=== PATIENT | female | born 1940 | race Hispanic/Latino ===

== ENCOUNTER 2017-02-03 09:23 | Emergency (ER) | payer MEDICARE ==
[2017-02-03 09:31] VITALS: BMI 27.3
[2017-02-03 09:33] VITALS: BP 134/52; PULSE 84; TEMP 96.8
[2017-02-03 10:14] VITALS: O2SAT 98
--- NOTE | 2017-02-03 11:38 | ED PDOC ---
HPI: General Adult Time Seen by Provider: 02/03/17 10:37 Chief Complaint (Nursing): Upper Extremity Problem/Injury History Per: Patient Additional Complaint(s): Pt. states yesterday she tripped and fell and injured the R hand/wrist. Also reports falling on both knees but has no pain to them and has been ambulating without difficulty. Denies head injury, numbness, tingling. Past Medical History Reviewed: Historical Data, Nursing Documentation, Vital Signs Vital Signs: Last Vital Signs Temp 96.8 F L 02/03/17 09:31 Pulse 84 02/03/17 09:31 Resp 20 02/03/17 09:31 BP 134/52 L 02/03/17 09:31 Pulse Ox 98 02/03/17 13:30 - Medical History PMH: Arthritis, HTN, Hypercholesterolemia, Kidney Stones, Osteoporosis, Pancreatitis, Pneumonia, Chronic Kidney Disease Denies: Alzheimer's Disease, Anemia, Anxiety, Asthma, Atrial Fibrillation, Bipolar Disorder, Bronchitis, CAD, Cardia Arrhythmia, CHF, COPD, Crohn's Disease , Dementia, Depression, Diverticulitis, Emphysema, Fractures, Gastritis, Gall Bladder Disease, HIV, Hyperthyroidism, Migraine, Mitral Valve Prolapse, Multiple Sclerosis, Paranoia, Parkinson's Disease, Peripheral Edema, Post Traumatic Stress Disorder, Pulmonary Embolism, Rheumatoid Arthritis, Schizophrenia, Seizures, Sickle Cell Disease, Sexually Transmitted Disease, Sleep Apnea, TIA - Surgical History Surgical History: Tonsillectomy Denies: Appendectomy, CABG, Carotid Endarterectomy, Cholecystectomy, Coronary Stent, Endoscopy, Pacemaker - Family History Family History: States: No Known Family Hx - Home Medications Home Medications: Ambulatory Orders Medication Instructions Recorded Enalapril Maleate [Vasotec] 5 mg PO DAILY tab 04/05/16 Simvastatin [Zocor] 20 mg PO DAILY 12/18/16 Tramadol HCl [Ultram] 50 mg PO BID PRN #10 tablet 02/03/17 - Allergies Allergies/Adverse Reactions: Allergies Allergy/AdvReac Type Severity Reaction Status Date / Time coconut oil Allergy Mild RASH Verified 02/03/17 10:11 Review of Systems ROS Statement: Except As Marked, All Systems Reviewed And Found Negative Musculoskeletal: Positive for: Hand Pain Physical Exam - Physical Exam Appears: Positive for: Well, Non-toxic, No Acute Distress Head Exam: Positive for: ATRAUMATIC, NORMAL INSPECTION, NORMOCEPHALIC Pulses-Dorsalis Pedis (L): 2+ Pulses-Dorsalis Pedis (R): 2+ Pulses-Radial (L): 2+ Pulses-Radial (R): 2+ Extremity: Positive for: Other (RUE: L dorsal hand and wrist with mild tenderness and swelling with ecchymosis but no deformity; BOTH KNEES: with minimal ecchymosis but no tenderness or deformity, L knee with superficial abrasion but no surrounding erythema) Neurologic/Psych: Positive for: Alert, Oriented - ECG O2 Sat by Pulse Oximetry: 98 - Radiology X-Ray: Interpreted by Me (R hand/wrist) - Progress ED Course And Treament: Adacel prophylaxis administered. R hand/wrist x-rays: Minimally displaced intra-articular fracture of the base of the 5th metacarpal. Pt. informed that she will need ortho consult. Pt. requests Dr. Awad as recommended to her by her friends. Call placed to Dr. Awad. [phone] Awad, who is in surgery at this time. Hand immobilized in orthoglass ulnar gutter splint applied by PA. [phone] Pt. requesting to be dc'd despite ortho consult not being done yet. Pt. states she herself will contact Dr. Awad. Informed that ortho consult is necessary for proper healing of fracture. Pt. searched on [place] [employer] and show no narcotic Rx's in the past 12 months. Disposition - Clinical Impression Clinical Impression: Hand fracture - Patient ED Disposition Is Patient to be Admitted: No - Disposition Referrals: Marily Awad MD [Staff Provider] - Disposition: Routine/Home Disposition Time: 11:43 Condition: STABLE Prescriptions: Tramadol HCl [Ultram] 50 mg PO BID PRN #10 tablet PRN Reason: Other Instructions: Hand Fracture (ED), Splint Care (ED) Forms: [employer] ([place]an) Print Language: IRISH
--- NOTE | 2017-02-03 11:45 | RAD ---
PROCEDURE: Right Hand Radiographs. HISTORY: trauma COMPARISON: None. FINDINGS: BONES: Minimally displaced intraarticular fracture of the base of the 5th metacarpal. JOINTS: Degenerative changes. SOFT TISSUES: Swelling adjacent to 5th metacarpal. OTHER FINDINGS: None. IMPRESSION: Minimally displaced intra-articular fracture of the base of the 5th metacarpal.
--- NOTE | 2017-02-03 11:45 | RAD ---
PROCEDURE: Right Wrist Radiographs. HISTORY: trauma COMPARISON: None. FINDINGS: BONES: Minimally-displaced intra-articular fracture of the base of the 5th metacarpal. JOINTS: Degenerative changes. SOFT TISSUES: Soft tissue swelling adjacent to 5th metacarpal. OTHER FINDINGS: None. IMPRESSION: Minimally displaced intra-articular fracture of the base of the 5th metacarpal.
[2017-02-03 13:53] VITALS: RESP 16
== END 2017-02-03 13:46 | disposition home or self-care (01) ==
LOC: H.ER 09:23
DX: S62.91XA Unspecified fracture of right hand, initial encounter for closed fracture (principal); W19.XXXA Unspecified fall, initial encounter; I12.9 Hypertensive chronic kidney disease with stage 1 through stage 4 chronic kidney disease, or unspecified chronic kidney disease; M81.0 Age-related osteoporosis without current pathological fracture; N18.9 Chronic kidney disease, unspecified; Z87.442 Personal history of urinary calculi; E78.00 Pure hypercholesterolemia, unspecified

== ENCOUNTER 2017-02-09 09:48 | Emergency (ER) | payer MEDICARE ==
[2017-02-09 09:49] VITALS: BMI 27.3
[2017-02-09 09:53] VITALS: TEMP 97.8
[2017-02-09] MEDS ORDERED: Sodium Chloride 0.9% 1,000 ML IV STA (10:37)
--- NOTE | 2017-02-09 11:05 | ED PDOC ---
Syncope/Near Syncope/Dizziness Time Seen by Provider: 02/09/17 10:02 Chief Complaint (Nursing): Dizziness/Lightheaded Chief Complaint (Provider): Dizziness/Lightheaded History Per: Patient History/Exam Limitations: no limitations Onset/Duration Of Symptoms: Days (x1 this am) Associated Symptoms Preceding Syncopal Episode: Lightheadedness, Other (slight headache) Fall Associated With With Symptoms: No Additional Complaint(s): Kamila Garcia is a 76 year old female, with a past medical history of hypertension, who was brought to the emergency department by EMS for acute lightheadedness and mild headache onset since this morning. Patient reports that after she got to her friend's apartment, she had a coffee and some chocolate cake, but then vomited the contents. Patient feels dehydrated and admits to not eating well. She denies any fever, chills, thirst, neck pain, chest pain, shortness of breath, abdominal pain, dysuria, diarrhea or nausea. No further medical complaints. PMD: Bryan Vieyra Past Medical History Reviewed: Historical Data, Nursing Documentation, Vital Signs Vital Signs: Last Vital Signs Temp 97.8 F 02/09/17 10:12 Pulse 78 02/09/17 10:12 Resp 20 02/09/17 10:12 BP 151/70 H 02/09/17 10:12 Pulse Ox 100 02/09/17 10:12 - Medical History PMH: Arthritis, HTN, Hypercholesterolemia, Kidney Stones, Osteoporosis, Pancreatitis, Pneumonia, Chronic Kidney Disease Denies: Alzheimer's Disease, Anemia, Anxiety, Asthma, Atrial Fibrillation, Bipolar Disorder, Bronchitis, CAD, Cardia Arrhythmia, CHF, COPD, Crohn's Disease , Dementia, Depression, Diverticulitis, Emphysema, Fractures, Gastritis, Gall Bladder Disease, HIV, Hyperthyroidism, Migraine, Mitral Valve Prolapse, Multiple Sclerosis, Paranoia, Parkinson's Disease, Peripheral Edema, Post Traumatic Stress Disorder, Pulmonary Embolism, Rheumatoid Arthritis, Schizophrenia, Seizures, Sickle Cell Disease, Sexually Transmitted Disease, Sleep Apnea, TIA - Surgical History Surgical History: Tonsillectomy Denies: Appendectomy, CABG, Carotid Endarterectomy, Cholecystectomy, Coronary Stent, Endoscopy, Pacemaker - Family History Family History: States: Unknown Family Hx - Home Medications Home Medications: Ambulatory Orders Medication Instructions Recorded Enalapril Maleate [Vasotec] 5 mg PO DAILY tab 04/05/16 Simvastatin [Zocor] 20 mg PO DAILY 12/18/16 Tramadol HCl [Ultram] 50 mg PO BID PRN #10 tablet 02/03/17 - Allergies Allergies/Adverse Reactions: Allergies Allergy/AdvReac Type Severity Reaction Status Date / Time coconut oil Allergy Mild RASH Verified 02/03/17 10:11 aspirin Allergy RASH Verified 02/09/17 11:51 Review of Systems ROS Statement: Except As Marked, All Systems Reviewed And Found Negative Constitutional: Negative for: Fever, Chills, Other (thirst) Cardiovascular: Positive for: Light Headedness (acute). Negative for: Chest Pain Respiratory: Negative for: Shortness of Breath Gastrointestinal: Positive for: Vomiting (x1). Negative for: Nausea, Abdominal Pain, Diarrhea Genitourinary Female: Negative for: Dysuria Musculoskeletal: Negative for: Neck Pain Neurological: Positive for: Headache (slight) Physical Exam - Reviewed Nursing Documentation Reviewed: Yes Vital Signs Reviewed: Yes - Physical Exam Appears: Positive for: Well, Non-toxic, No Acute Distress Head Exam: Positive for: ATRAUMATIC, NORMAL INSPECTION, NORMOCEPHALIC Skin: Positive for: Normal Color, Warm, Dry Eye Exam: Positive for: EOMI, Normal appearance, PERRL Neck: Positive for: Normal, Painless ROM, Supple Cardiovascular/Chest: Positive for: Regular Rate, Rhythm. Negative for: Murmur Respiratory: Positive for: Normal Breath Sounds. Negative for: Respiratory Distress Gastrointestinal/Abdominal: Positive for: Normal Exam, Bowel Sounds, Soft. Negative for: Tenderness, Guarding, Rebound Back: Positive for: Normal Inspection. Negative for: L CVA Tenderness, R CVA Tenderness Extremity: Positive for: Normal ROM. Negative for: Pedal Edema, Deformity, Swelling Neurologic/Psych: Positive for: Alert, Oriented. Negative for: Motor/Sensory Deficits - Laboratory Results Result Diagrams: 02/09/17 12:40 02/09/17 12:40 - ECG O2 Sat by Pulse Oximetry: 100 (RA) Pulse Ox Interpretation: Normal Medical Decision Making Medical Decision Making: Initial Impression: acute dizziness. rule out: neurovascular causes Initial Plan: --Head w/o contrast [CT] --BMP --Troponin I --Urine dipstick --CBC w/ differential --NS IV 1,000 ml @ 1,000 mls/hr --reevaluation [address] FINDINGS: HEMORRHAGE: No intracranial hemorrhage. BRAIN: Baird-white matter differentiation is preserved. 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 There is no mass or mass effect. There are stable enlarged bifrontal extra-axial CSF spaces. VENTRICLES: There is mild age-related global parenchymal volume loss and proportionate enlargement of the ventricles and cortical sulci. CALVARIUM: There is hyperostosis frontalis interna. PARANASAL SINUSES: Predominantly clear. MASTOID AIR CELLS: Predominantly clear. OTHER FINDINGS: None. IMPRESSION: No acute intracranial abnormality. Mild age-related global parenchymal volume loss. Scribe Attestation: Documented by Torrey Cruz, acting as a scribe for Alejandra Recinos MD Provider Scribe Attestation: All medical record entries made by the Scribe were at my direction and personally dictated by me. I have reviewed the chart and agree that the record accurately reflects my personal performance of the history, physical exam, medical decision making, and the department course for this patient. I have also personally directed, reviewed, and agree with the discharge instructions and disposition. Disposition - Clinical Impression Clinical Impression: Dizziness, Dehydration - Patient ED Disposition Is Patient to be Admitted: No Doctor Will See Patient In The: Office Counseled Patient/Family Regarding: Diagnosis, Need For Followup - Disposition Referrals: Bryan Vieyra MD [Staff Provider] - [facility]ram[facility] [Outside] Disposition: Routine/Home Disposition Time: 14:07 Condition: IMPROVED Instructions: Dehydration (ED) Forms: [employer] (Malay) - POA Present On Arrival: None
--- NOTE | 2017-02-09 11:26 | CT ---
PROCEDURE: CT HEAD WITHOUT CONTRAST. HISTORY: Dizziness COMPARISON: 12/18/2016. TECHNIQUE: Axial computed tomography images were obtained through the head/brain without intravenous contrast. Radiation dose: Total exam DLP = 872.20 mGy-cm. This CT exam was performed using one or more of the following dose reduction techniques: Automated exposure control, adjustment of the mA and/or kV according to patient size, and/or use of iterative reconstruction technique. FINDINGS: HEMORRHAGE: No intracranial hemorrhage. BRAIN: Baird-white matter differentiation is preserved. 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 There is no mass or mass effect. There are stable enlarged bifrontal extra-axial CSF spaces. VENTRICLES: There is mild age-related global parenchymal volume loss and proportionate enlargement of the ventricles and cortical sulci. CALVARIUM: There is hyperostosis frontalis interna. PARANASAL SINUSES: Predominantly clear. MASTOID AIR CELLS: Predominantly clear. OTHER FINDINGS: None. IMPRESSION: No acute intracranial abnormality. Mild age-related global parenchymal volume loss.
[2017-02-09 12:49] LABS: BASO % 0.5 % (0.0-2.0); EOS % 0.8 % (0.0-4.0); LYMPH # 1.2 K/uL (1.0-4.3); LYMPH % 20.4 % (20.0-40.0); MEAN CELL VOLUME 88.9 fl (81.0-99.0); MEAN CORPUSCULAR HEMOGLOBIN 29.5 pg (27.0-31.0); MEAN CORPUSCULAR HGB CONC 33.1 g/dL (33.0-37.0); MEAN PLATELET VOLUME 8.6 fl (7.2-11.7); MONO # 0.4 K/uL (0.0-0.8); MONO % 7.5 % (0.0-10.0); NEUT # 4.2 K/uL (1.8-7.0); NEUT % 70.8 % (50.0-75.0); RED CELL DISTRIBUTION WIDTH 13.5 % (11.5-14.5); WHITE BLOOD COUNT 5.9 K/uL (4.8-10.8)
[2017-02-09 12:58] LABS: BLOOD UREA NITROGEN 19 mg/dl (7-17); CALCIUM 9.7 mg/dL (8.4-10.2); CARBON DIOXIDE 21 mmol/L (22-30); CHLORIDE 110 mmol/L (98-107); GFR AFRICAN-AMERICAN > 60; GLUCOSE,RANDOM 94 mg/dL (65-105); POTASSIUM 3.8 MMOL/L (3.6-5.0); SODIUM 141 mmol/l (132-148)
[2017-02-09 14:33] VITALS: BP 120/87; PULSE 87; RESP 18; O2SAT 97
== END 2017-02-09 14:32 | disposition home or self-care (01) ==
LOC: H.ER 09:48
DX: E86.0 Dehydration (principal); R42 Dizziness and giddiness; E78.00 Pure hypercholesterolemia, unspecified; I12.9 Hypertensive chronic kidney disease with stage 1 through stage 4 chronic kidney disease, or unspecified chronic kidney disease; K85.90 Acute pancreatitis without necrosis or infection, unspecified; M81.0 Age-related osteoporosis without current pathological fracture; Z87.442 Personal history of urinary calculi
CPT/HCPCS: 70450; 80048; 82948; 84484; 85025; 87086; 96360; 99284; J7040

== ENCOUNTER 2017-02-18 14:37 | Emergency (ER) | payer MEDICARE ==
[2017-02-18 14:38] VITALS: BMI 27.3
[2017-02-18 15:05] VITALS: BP 139/72; PULSE 72; RESP 16; TEMP 97.9; O2SAT 100
[2017-02-18] MEDS ORDERED: Sodium Chloride 0.9% 1,000 ML IV STA (15:31)
--- NOTE | 2017-02-18 15:33 | ED PDOC ---
Syncope/Near Syncope/Dizziness Time Seen by Provider: 02/18/17 15:06 Chief Complaint (Nursing): Dizziness/Lightheaded History Per: Patient (Dizziness assoc with left sided haedache while visiting pt in hospital. No LOC. Denies chest pain or palpitations. No focal weakness or parsthesias.) Activity At Onset Of Symptoms: Standing Seizure Or Post-ictal Symptoms: None Fall Associated With With Symptoms: No Past Medical History Vital Signs: Last Vital Signs Temp 97.9 F 02/18/17 15:04 Pulse 72 02/18/17 15:04 Resp 16 02/18/17 15:04 BP 139/72 02/18/17 15:04 Pulse Ox 100 02/18/17 15:04 - Medical History PMH: Arthritis, HTN, Hypercholesterolemia, Kidney Stones, Osteoporosis, Pancreatitis, Pneumonia, Chronic Kidney Disease Denies: Alzheimer's Disease, Anemia, Anxiety, Asthma, Atrial Fibrillation, Bipolar Disorder, Bronchitis, CAD, Cardia Arrhythmia, CHF, COPD, Crohn's Disease , Dementia, Depression, Diverticulitis, Emphysema, Fractures, Gastritis, Gall Bladder Disease, HIV, Hyperthyroidism, Migraine, Mitral Valve Prolapse, Multiple Sclerosis, Paranoia, Parkinson's Disease, Peripheral Edema, Post Traumatic Stress Disorder, Pulmonary Embolism, Rheumatoid Arthritis, Schizophrenia, Seizures, Sickle Cell Disease, Sexually Transmitted Disease, Sleep Apnea, TIA - Surgical History Surgical History: Tonsillectomy Denies: Appendectomy, CABG, Carotid Endarterectomy, Cholecystectomy, Coronary Stent, Endoscopy, Pacemaker - Family History Family History: States: Unknown Family Hx - Home Medications Home Medications: Ambulatory Orders Medication Instructions Recorded Enalapril Maleate [Vasotec] 5 mg PO DAILY tab 04/05/16 Simvastatin [Zocor] 20 mg PO DAILY 12/18/16 Tramadol HCl [Ultram] 50 mg PO BID PRN #10 tablet 02/03/17 - Allergies Allergies/Adverse Reactions: Allergies Allergy/AdvReac Type Severity Reaction Status Date / Time coconut oil Allergy Mild RASH Verified 02/03/17 10:11 aspirin Allergy RASH Verified 02/09/17 11:51 Review of Systems ROS Statement: Except As Marked, All Systems Reviewed And Found Negative Cardiovascular: Negative for: Chest Pain, Palpitations Neurological: Positive for: Headache, Dizziness. Negative for: Weakness, Numbness Physical Exam - Reviewed Nursing Documentation Reviewed: Yes Vital Signs Reviewed: Yes - Physical Exam Appears: Positive for: Non-toxic, No Acute Distress Head Exam: Positive for: ATRAUMATIC, NORMAL INSPECTION, NORMOCEPHALIC Skin: Positive for: Normal Color, Warm, DRY Eye Exam: Positive for: EOMI, Normal appearance, PERRL ENT: Positive for: Normal ENT Inspection Neck: Positive for: Normal, Painless ROM Cardiovascular/Chest: Positive for: Regular Rate, Rhythm Respiratory: Positive for: CNT, Normal Breath Sounds Gastrointestinal/Abdominal: Positive for: Normal Exam, Bowel Sounds, Soft Back: Positive for: Normal Inspection Extremity: Positive for: Normal ROM Neurologic/Psych: Positive for: Alert, Oriented - Laboratory Results Result Diagrams: 02/18/17 16:19 02/18/17 16:19 - ECG O2 Sat by Pulse Oximetry: 100 Medical Decision Making Medical Decision Making: Time: 1516 --AccuCheck: 100 Time: 15:30 --EKG --CMP --CBC w/ diff --Sodium Chloride 150 mls/hr IV --Head CT --Reevaluation Time: 1702 --Head CT FINDINGS: HEMORRHAGE: No intracranial hemorrhage. BRAIN: No mass effect or edema. Zftg-oa-[id number] volume loss is again noted. Mild chronic microvascular white matter ischemic disease is also noted. Re- demonstrated is a with defined low-attenuation focus at the medial aspect of the right temporal lobe adjacent and inferior to the right thalamus may represent dilated perivascular space. VENTRICLES: Unremarkable. No hydrocephalus. CALVARIUM: Unremarkable. PARANASAL SINUSES: Unremarkable as visualized. No significant inflammatory changes. MASTOID AIR CELLS: Unremarkable as visualized. No inflammatory changes. OTHER FINDINGS: None. IMPRESSION: No evidence of acute intracranial hemorrhage or significant interval change when compared to the previous study dated 02/09/2017. Atrophy and mild chronic microvascular ischemic disease. Disposition - Clinical Impression Clinical Impression: Dizzy spells - Patient ED Disposition Is Patient to be Admitted: No - Disposition Referrals: Bryan Vieyra MD [Staff Provider] - Disposition: Routine/Home Disposition Time: 17:48 Condition: FAIR Instructions: Dizziness (ED) Forms: [employer] (Belgian)
[2017-02-18 16:26] LABS: BASO % 0.7 % (0.0-2.0); EOS # 0.1 K/uL (0.0-0.7); EOS % 1.8 % (0.0-4.0); HEMATOCRIT 34.5 % (34.0-47.0); LYMPH # 1.6 K/uL (1.0-4.3); LYMPH % 26.4 % (20.0-40.0); MEAN CELL VOLUME 89.1 fl (81.0-99.0); MEAN CORPUSCULAR HEMOGLOBIN 29.9 pg (27.0-31.0); MEAN CORPUSCULAR HGB CONC 33.6 g/dL (33.0-37.0); MEAN PLATELET VOLUME 8.5 fl (7.2-11.7); MONO # 0.4 K/uL (0.0-0.8); MONO % 7.2 % (0.0-10.0); NEUT # 3.7 K/uL (1.8-7.0); NEUT % 63.9 % (50.0-75.0); NRBC % 0.1 % (0.0-0.0); RED CELL DISTRIBUTION WIDTH 13.4 % (11.5-14.5); WHITE BLOOD COUNT 5.9 K/uL (4.8-10.8)
[2017-02-18 16:38] LABS: ALB/GLOB RATIO 1.3 (1.0-2.1); CALCIUM 9.7 mg/dL (8.4-10.2); POTASSIUM 3.9 MMOL/L (3.6-5.0); TOTAL PROTEIN 7.9 G/DL (6.3-8.2)
--- NOTE | 2017-02-18 17:03 | CT ---
PROCEDURE: CT HEAD WITHOUT CONTRAST. HISTORY: r/o bleed COMPARISON: Comparison is made to the previous study dated 02/09/2017 TECHNIQUE: Axial computed tomography images were obtained through the head/brain without intravenous contrast. Radiation dose: Total exam DLP = 863.79 mGy-cm. This CT exam was performed using one or more of the following dose reduction techniques: Automated exposure control, adjustment of the mA and/or kV according to patient size, and/or use of iterative reconstruction technique. FINDINGS: HEMORRHAGE: No intracranial hemorrhage. BRAIN: No mass effect or edema. Balk-[id number] volume loss is again noted. Mild chronic microvascular white matter ischemic disease is also noted. Re- demonstrated is a with defined low-attenuation focus at the medial aspect of the right temporal lobe adjacent and inferior to the right thalamus may represent dilated perivascular space. VENTRICLES: Unremarkable. No hydrocephalus. CALVARIUM: Unremarkable. PARANASAL SINUSES: Unremarkable as visualized. No significant inflammatory changes. MASTOID AIR CELLS: Unremarkable as visualized. No inflammatory changes. OTHER FINDINGS: None. IMPRESSION: No evidence of acute intracranial hemorrhage or significant interval change when compared to the previous study dated 02/09/2017. Atrophy and mild chronic microvascular ischemic disease.
--- NOTE | 2017-02-19 15:23 | CARD ---
APPROVED REPORT EKG Measurement Heart [id number] ND [id number] <Conclusion> Normal sinus rhythm Normal ECG
== END 2017-02-18 18:20 | disposition home or self-care (01) ==
LOC: H.ER 14:37
DX: R42 Dizziness and giddiness (principal); E78.00 Pure hypercholesterolemia, unspecified; I12.9 Hypertensive chronic kidney disease with stage 1 through stage 4 chronic kidney disease, or unspecified chronic kidney disease; Z87.442 Personal history of urinary calculi; K85.90 Acute pancreatitis without necrosis or infection, unspecified
CPT/HCPCS: 70450; 80053; 82948; 85025; 93005; 99285; J7040

== ENCOUNTER 2017-08-30 14:40 | Inpatient (IN) | payer OTHER ==
[2017-08-30 20:01] VITALS: BMI 26.5
[2017-08-31 06:36] LABS: BASO % 0.5 % (0.0-2.0); EOS # 0.3 K/uL (0.0-0.7); EOS % 3.8 % (0.0-4.0); HEMOGLOBIN 9.6 g/dL (12.0-16.0); LYMPH # 1.5 K/uL (1.0-4.3); LYMPH % 21.4 % (20.0-40.0); MEAN CELL VOLUME 89.2 fl (81.0-99.0); MEAN CORPUSCULAR HGB CONC 34.7 g/dL (33.0-37.0); MEAN PLATELET VOLUME 7.5 fl (7.2-11.7); MONO # 0.8 K/uL (0.0-0.8); MONO % 11.2 % (0.0-10.0); NEUT # 4.5 K/uL (1.8-7.0); NEUT % 63.1 % (50.0-75.0); NRBC % 0.1 % (0.0-0.0); RBC 3.09 Mil/uL (3.80-5.20); WHITE BLOOD COUNT 7.2 K/uL (4.8-10.8)
[2017-08-31 06:58] LABS: ALB/GLOB RATIO 1.1 (1.0-2.1); ALBUMIN 3.3 g/dL (3.5-5.0); ALT/SGPT 26 U/L (9-52); AST/SGOT 34 U/L (14-36); BLOOD UREA NITROGEN 12 mg/dl (7-17); CALCIUM 9.5 mg/dL (8.4-10.2); GFR AFRICAN-AMERICAN > 60; GFR NON-AFRICAN AMERICAN > 60; HDL CHOLESTEROL 33 MG/DL (30-70)
[2017-08-31 07:09] LABS: LDL CHOLESTEROL 80 mg/dL (0-129)
--- NOTE | 2017-08-31 07:53 | CP.PCM.HP ---
History of Present Illness - History of Present Illness History of Present Illness: pt admitted to [facility] after admission to [facility] for TAVR. at present no f/c, n/v/d. no pain. r neck dsg c/d/i am labs noted. records from [facility] reviewed. case d/c w/ gema carrasquillo, barb Present on Admission - Present on Admission Any Indicators Present on Admission: No Past Patient History - Past Medical History & Family History Past Medical History?: Yes - Past Social History Smoking Status: Never Smoked - CARDIAC Hx Cardiac Disorders: Yes Hx Angina: Yes Hx Hypercholesterolemia: Yes Hx Hypertension: Yes Other/Comment: severe aortic stenosis VARICOSE VEINS LEFT LEG. Mini AVR 2017 - PULMONARY Hx Respiratory Disorders: Yes Hx Pneumonia: Yes (1 YEAR AGO) - NEUROLOGICAL Hx Neurological Disorder: Yes Hx Dizziness: Yes Hx Syncope: Yes Hx Vertigo: Yes - HEENT Hx HEENT Problems: No - RENAL Hx Chronic Kidney Disease: Yes Hx Kidney Stones: Yes - ENDOCRINE/METABOLIC Hx Endocrine Disorders: No - HEMATOLOGICAL/ONCOLOGICAL Hx Blood Disorders: Yes Hx AIDS: (DURING PREG ONLY) Hx Anemia: Yes - INTEGUMENTARY Hx Dermatological Problems: Yes (FACIAL RASH) - MUSCULOSKELETAL/RHEUMATOLOGICAL Hx Musculoskeletal Disorders: Yes Hx Arthritis: Yes Hx Degenerative Joint Disease: Yes Hx Falls: No Hx Fractures: Yes (SPINAL) Hx Herniated Disk: Yes (CERVICAL) Hx Osteoporosis: Yes Hx Unsteady Gait: Yes Other/Comment: LUMBAR SPRAIN, SCIATICA - GASTROINTESTINAL Hx Gastrointestinal Disorders: Yes Hx Gastroesophageal Reflux: No Hx Pancreatitis: Yes - GENITOURINARY/GYNECOLOGICAL Hx Genitourinary Disorders: Yes Hx Incontinence: Yes Hx Urinary Tract Infection: No - PSYCHIATRIC Hx Substance Use: No - SURGICAL HISTORY Hx Surgeries: Yes Hx Cardiac Catheterization: Yes Hx Dilation and Curettage: Yes Hx Tonsillectomy: Yes Other/Comment: CYSTOSCOPY STENT INSERTION AND REMOVAL. Mini AVR on 08/25/2017 - ANESTHESIA Hx Anesthesia: Yes Hx Anesthesia Reactions: Yes (NAUSEA) Hx Malignant Hyperthermia: No Meds Allergies/Adverse Reactions: Allergies Allergy/AdvReac Type Severity Reaction Status Date / Time coconut oil Allergy Mild RASH Verified 08/30/17 17:20 Physical Exam - Constitutional Appears: Well, Non-toxic, No Acute Distress - Head Exam Head Exam: ATRAUMATIC, NORMAL INSPECTION, NORMOCEPHALIC - Eye Exam Eye Exam: EOMI, Normal appearance, PERRL Pupil Exam: NORMAL ACCOMODATION, PERRL - ENT Exam ENT Exam: Mucous Membranes Moist, Normal Exam - Neck Exam Neck exam: Positive for: Normal Inspection - Respiratory Exam Respiratory Exam: Clear to Auscultation Bilateral, NORMAL BREATHING PATTERN - Cardiovascular Exam Cardiovascular Exam: REGULAR RHYTHM, RRR, +S1, +S2 Additional comments: ??slight systolic murmur - GI/Abdominal Exam GI & Abdominal Exam: Normal Bowel Sounds, Soft. absent: Tenderness - Extremities Exam Extremities exam: Positive for: full ROM, normal capillary refill, normal inspection, pedal pulses present - Back Exam Back exam: FULL ROM, NORMAL INSPECTION - Neurological Exam Neurological exam: Alert, CN II-XII Intact, Normal Gait, Oriented x3, Reflexes Normal - Psychiatric Exam Psychiatric exam: Normal Affect, Normal Mood - Skin Skin Exam: Dry, Intact, Normal Color, Warm Additional comments: dsg c/d/i to neck Results - Vital Signs Recent Vital Signs: Last Vital Signs Temp 97.9 F 08/30/17 21:03 Pulse 90 08/30/17 23:22 Resp 20 08/30/17 23:22 BP 144/75 08/30/17 22:00 Pulse Ox 97 08/30/17 23:22 - Labs Result Diagrams: 08/31/17 05:45 08/31/17 05:45 Labs: Laboratory Results - last 24 hr 08/31/17 08/31/17 08/31/17 05:36 05:45 05:45 WBC 7.2 RBC 3.09 L Hgb 9.6 L D Hct 27.6 L MCV 89.2 MCH 31.0 MCHC 34.7 RDW 14.0 Plt Count 316 MPV 7.5 Neut % (Auto) 63.1 Lymph % (Auto) 21.4 [place] % (Auto) 11.2 H Eos % (Auto) 3.8 Baso % (Auto) 0.5 Neut # (Auto) 4.5 Lymph # (Auto) 1.5 [place] # (Auto) 0.8 Eos # (Auto) 0.3 Baso # (Auto) 0.0 Sodium 137 Potassium 4.0 Chloride 104 Carbon Dioxide 23 Anion Gap 14 BUN 12 Creatinine 0.8 Est GFR ( Amer) > 60 Est GFR (Non-Af Amer) > 60 POC Glucose (mg/dL) 81 Random Glucose 84 Calcium 9.5 Total Bilirubin 0.8 AST 34 ALT 26 Alkaline Phosphatase 71 Total Protein 6.5 Albumin 3.3 L D Globulin 3.1 Albumin/Globulin Ratio 1.1 Triglycerides 90 Cholesterol 140 LDL Cholesterol Direct 80 HDL Cholesterol 33 Assessment & Plan (1) Aortic stenosis, severe Assessment and Plan: s/p TAVR, cardio consult asa, lovenox cardio pt/ot Status: Acute (2) DVT prophylaxis Assessment and Plan: scd nad ae hose lovenox Status: Acute - Assessment and Plan (Free Text) Assessment: htn/dyslipidemia-cont meds, tnad exercise, bw noted Decision To Admit - Pt Status Changed To: Hospital Disposition Of: Inpatient - Admit Certification Admit to Inpatient:: After my assessment, the patient will require hospitalization for at least two midnights. This is because of the severity of symptoms shown, intensity of services needed, and/or the medical risk in this patient being treated as an outpatient. - . Bed Request Type: Transitional Care Unit Admitting Physician: Denia Diaz
[2017-08-31] MEDS: Enoxaparin 40 mg Syringe SC SCH (11:07)
--- NOTE | 2017-08-31 11:08 | CP.PCM.CON ---
History of Present Illness - History of Present Illness History of Present Illness: THE PATIENT A 77 YEAR OLD FEMALE WHO HAD A MINI-INVASIVE AORTIC VALVE REPLACEMENT LAST WEEK AT [facility] ([facility]) FOR AORTIC STENOSIS AND WAS DISCHARGED TO TCU FOR SUBACUTE REHAB. SHE ALSO HAS A HISTORY OF HYPERTENSION AND HYPERLIPIDEMIA. HER AORTIC VALVE STENOSIS WAS VERY SEVERE AND SHE HAD REPEATED SYNCOPE AND SHE HAS BEEN FINE SINCE SURGERY. SHE DENIES ANY CHEST PAIN OTHER THAN SURGICAL SITE PAIN AND IS BREATHING WELL. Past Patient History - Past Medical History & Family History Past Medical History?: Yes - Past Social History Smoking Status: Never Smoked - CARDIAC Hx Cardiac Disorders: Yes Hx Angina: Yes Hx Hypercholesterolemia: Yes Hx Hypertension: Yes Other/Comment: severe aortic stenosis VARICOSE VEINS LEFT LEG. Mini AVR 2017 - PULMONARY Hx Respiratory Disorders: Yes Hx Pneumonia: Yes (1 YEAR AGO) - NEUROLOGICAL Hx Neurological Disorder: Yes Hx Dizziness: Yes Hx Syncope: Yes Hx Vertigo: Yes - HEENT Hx HEENT Problems: No - RENAL Hx Chronic Kidney Disease: Yes Hx Kidney Stones: Yes - ENDOCRINE/METABOLIC Hx Endocrine Disorders: No - HEMATOLOGICAL/ONCOLOGICAL Hx Blood Disorders: Yes Hx AIDS: (DURING PREG ONLY) Hx Anemia: Yes - INTEGUMENTARY Hx Dermatological Problems: Yes (FACIAL RASH) - MUSCULOSKELETAL/RHEUMATOLOGICAL Hx Musculoskeletal Disorders: Yes Hx Arthritis: Yes Hx Degenerative Joint Disease: Yes Hx Falls: No Hx Fractures: Yes (SPINAL) Hx Herniated Disk: Yes (CERVICAL) Hx Osteoporosis: Yes Hx Unsteady Gait: Yes Other/Comment: LUMBAR SPRAIN, SCIATICA - GASTROINTESTINAL Hx Gastrointestinal Disorders: Yes Hx Gastroesophageal Reflux: No Hx Pancreatitis: Yes - GENITOURINARY/GYNECOLOGICAL Hx Genitourinary Disorders: Yes Hx Incontinence: Yes Hx Urinary Tract Infection: No - PSYCHIATRIC Hx Substance Use: No - SURGICAL HISTORY Hx Surgeries: Yes Hx Cardiac Catheterization: Yes Hx Dilation and Curettage: Yes Hx Tonsillectomy: Yes Other/Comment: CYSTOSCOPY STENT INSERTION AND REMOVAL. Mini AVR on 08/25/2017 - ANESTHESIA Hx Anesthesia: Yes Hx Anesthesia Reactions: Yes (NAUSEA) Hx Malignant Hyperthermia: No Meds Allergies/Adverse Reactions: Allergies Allergy/AdvReac Type Severity Reaction Status Date / Time coconut oil Allergy Mild RASH Verified 08/30/17 17:20 - Medications Medications: Current Medications Acetaminophen (Tylenol 325mg Tab) 650 mg PO Q4 PRN PRN Reason: Pain, Mild (1-3) Aspirin (Ecotrin) 81 mg PO DAILY [facility] Last Admin: 08/31/17 09:39 Dose: Not Given Atorvastatin Calcium (Lipitor) 10 mg PO HS [facility] Last Admin: 08/31/17 09:35 Dose: Not Given Enalapril Maleate (Vasotec) 5 mg PO DAILY [facility] Last Admin: 08/31/17 09:38 Dose: Not Given Enoxaparin Sodium (Lovenox) 40 mg SC DAILY [facility] PRN Reason: Protocol Ibuprofen (Motrin Tab) 600 mg PO Q6 PRN PRN Reason: pain 6-10 Physical Exam - Respiratory Exam Respiratory Exam: Clear to Auscultation Bilateral - Cardiovascular Exam Cardiovascular Exam: REGULAR RHYTHM, +S1, +S2 - Extremities Exam Extremities exam: Positive for: normal inspection Results - Vital Signs Recent Vital Signs: Last Vital Signs Temp 98.4 F 08/31/17 08:29 Pulse 94 H 08/31/17 08:29 Resp 20 08/31/17 08:29 BP 154/77 H 08/31/17 08:29 Pulse Ox 93 L 08/31/17 08:29 - Labs Result Diagrams: 08/31/17 05:45 08/31/17 05:45 Labs: Laboratory Results - last 24 hr 08/31/17 08/31/17 08/31/17 05:36 05:45 05:45 WBC 7.2 RBC 3.09 L Hgb 9.6 L D Hct 27.6 L MCV 89.2 MCH 31.0 MCHC 34.7 RDW 14.0 Plt Count 316 MPV 7.5 Neut % (Auto) 63.1 Lymph % (Auto) 21.4 [place] % (Auto) 11.2 H Eos % (Auto) 3.8 Baso % (Auto) 0.5 Neut # (Auto) 4.5 Lymph # (Auto) 1.5 [place] # (Auto) 0.8 Eos # (Auto) 0.3 Baso # (Auto) 0.0 Sodium 137 Potassium 4.0 Chloride 104 Carbon Dioxide 23 Anion Gap 14 BUN 12 Creatinine 0.8 Est GFR ( Amer) > 60 Est GFR (Non-Af Amer) > 60 POC Glucose (mg/dL) 81 Random Glucose 84 Calcium 9.5 Total Bilirubin 0.8 AST 34 ALT 26 Alkaline Phosphatase 71 Total Protein 6.5 Albumin 3.3 L D Globulin 3.1 Albumin/Globulin Ratio 1.1 Triglycerides 90 Cholesterol 140 LDL Cholesterol Direct 80 HDL Cholesterol 33 Assessment & Plan - Assessment and Plan (Free Text) Assessment: S/P MINI-INVASIVE AORTIC VALVE REPLACEMENT HYPERTENSION HYPERLIPIDEMIA Plan: CONTINUE ASPIRIN, LOVENOX, ENALAPRIL AND ATORVASTATIN CONTINUE SUBACUTE REHAB
--- NOTE | 2017-08-31 15:54 | CARD ---
APPROVED REPORT EKG Measurement Heart [id number] <Conclusion> Normal sinus rhythm Nonspecific T wave abnormality Abnormal ECG
[2017-09-01] MEDS: Enoxaparin 40 mg Syringe SC SCH (08:35)
[2017-09-01] MEDS: Hydrocortisone-Pramoxine 1%-1% Foam(10 gm) TOP SCH (21:28)
[2017-09-02] MEDS: Hydrocortisone-Pramoxine 1%-1% Foam(10 gm) TOP SCH ×2 (09:25→17:54)
[2017-09-02] MEDS: Enoxaparin 40 mg Syringe SC SCH (09:26)
--- NOTE | 2017-09-02 09:29 | CP.PCM.PN ---
Subjective - Date & Time of Evaluation Date of Evaluation: 09/02/17 Time of Evaluation: 09:28 - Subjective Subjective: pt doing well no fcnv states having alternating constipation/ diarrhea thinks is r/t po intake as she had dental extraction prior to tavr no pain, mikhail pt/ot Objective - Vital Signs/Intake and Output Vital Signs (last 24 hours): Temp Pulse Resp BP Pulse Ox 97.5 F L 88 20 122/61 99 09/02/17 08:17 09/02/17 08:17 09/02/17 08:17 09/02/17 08:17 09/02/17 08:17 - Medications Medications: Current Medications Acetaminophen (Tylenol 325mg Tab) 650 mg PO Q4 PRN PRN Reason: Pain, Mild (1-3) Last Admin: 09/01/17 16:24 Dose: 650 mg Aspirin (Ecotrin) 81 mg PO DAILY [facility] Last Admin: 09/01/17 08:35 Dose: 81 mg Atorvastatin Calcium (Lipitor) 10 mg PO HS [facility] Last Admin: 09/01/17 21:28 Dose: 10 mg Enalapril Maleate (Vasotec) 5 mg PO DAILY [facility] Last Admin: 09/01/17 08:35 Dose: 5 mg Enoxaparin Sodium (Lovenox) 40 mg SC DAILY [facility] PRN Reason: Protocol Last Admin: 09/01/17 08:35 Dose: 40 mg Hydrocortisone/Pramoxine (Proctofoam) 1 gm TOP BID [facility] Last Admin: 09/01/17 21:28 Dose: 1 gm Ibuprofen (Motrin Tab) 600 mg PO Q6 PRN PRN Reason: pain 6-10 Last Admin: 09/01/17 06:27 Dose: 600 mg - Labs Labs: 08/31/17 05:45 08/31/17 05:45 - Constitutional Appears: Well, Non-toxic, No Acute Distress - Head Exam Head Exam: ATRAUMATIC, NORMAL INSPECTION, NORMOCEPHALIC - Eye Exam Eye Exam: EOMI, Normal appearance, PERRL Pupil Exam: NORMAL ACCOMODATION, PERRL - ENT Exam ENT Exam: Mucous Membranes Moist, Normal Exam - Neck Exam Neck Exam: Full ROM, Normal Inspection. absent: Lymphadenopathy - Respiratory Exam Respiratory Exam: Clear to Ausculation Bilateral, NORMAL BREATHING PATTERN - Cardiovascular Exam Cardiovascular Exam: REGULAR RHYTHM, RRR, +S1, +S2. absent: Murmur - GI/Abdominal Exam GI & Abdominal Exam: Soft, Normal Bowel Sounds. absent: Tenderness - Extremities Exam Extremities Exam: Full ROM, Normal Capillary Refill, Normal Inspection. absent : Joint Swelling, Pedal Edema - Back Exam Back Exam: NORMAL INSPECTION - Neurological Exam Neurological Exam: Alert, Awake, CN II-XII Intact, Normal Gait, Oriented x3 - Psychiatric Exam Psychiatric exam: Normal Affect, Normal Mood - Skin Skin Exam: Dry, Intact, Normal Color, Warm Assessment and Plan (1) Aortic stenosis, severe Status: Acute (2) DVT prophylaxis Status: Acute (3) HLD (hyperlipidemia) Status: Chronic (4) Hypertension Status: Chronic - Assessment and Plan (Free Text) Assessment: (1) Aortic stenosis, severe Assessment and Plan: s/p TAVR, cardio consult asa, lovenox cardio pt/ot Status: Acute (2) DVT prophylaxis Assessment and Plan: scd nad ae hose lovenox Status: Acute 3- htn/dyslipidemia-cont meds, tnad exercise, bw noted 4-po intol r/t dental surgery, boost/ensure
--- NOTE | 2017-09-02 11:38 | CP.PCM.PN ---
Subjective - Date & Time of Evaluation Date of Evaluation: 09/02/17 Time of Evaluation: 09:30 - Subjective Subjective: NO CHEST PAIN OR SOB DOING WELL AT REHAB Objective - Vital Signs/Intake and Output Vital Signs (last 24 hours): Temp Pulse Resp BP Pulse Ox 97.5 F L 88 20 122/61 99 09/02/17 08:17 09/02/17 08:17 09/02/17 08:17 09/02/17 08:17 09/02/17 08:17 - Medications Medications: Current Medications Acetaminophen (Tylenol 325mg Tab) 650 mg PO Q4 PRN PRN Reason: Pain, Mild (1-3) Last Admin: 09/02/17 11:25 Dose: 650 mg Aspirin (Ecotrin) 81 mg PO DAILY [facility] Last Admin: 09/02/17 09:25 Dose: 81 mg Atorvastatin Calcium (Lipitor) 10 mg PO HS [facility] Last Admin: 09/01/17 21:28 Dose: 10 mg Enalapril Maleate (Vasotec) 5 mg PO DAILY [facility] Last Admin: 09/02/17 09:25 Dose: 5 mg Enoxaparin Sodium (Lovenox) 40 mg SC DAILY [facility] PRN Reason: Protocol Last Admin: 09/02/17 09:26 Dose: 40 mg Hydrocortisone/Pramoxine (Proctofoam) 1 gm TOP BID [facility] Last Admin: 09/02/17 09:25 Dose: 1 gm Ibuprofen (Motrin Tab) 600 mg PO Q6 PRN PRN Reason: pain 6-10 Last Admin: 09/01/17 06:27 Dose: 600 mg - Labs Labs: 08/31/17 05:45 08/31/17 05:45 - Respiratory Exam Respiratory Exam: Clear to Ausculation Bilateral - Cardiovascular Exam Cardiovascular Exam: REGULAR RHYTHM, +S1, +S2 - Extremities Exam Extremities Exam: Normal Inspection Assessment and Plan - Assessment and Plan (Free Text) Assessment: S/P AORTIC VALVE REPLACEMENT FOR SEVERE AORTIC STENOSIS HYPERTENSION HYPERLIPIDEMIA Plan: CONTINUE ENALAPRIL, ATORVASTATIN, ASPIRIN AND LOVENOX CONTINUE SUBACUTE REHAB
[2017-09-03] MEDS: Enoxaparin 40 mg Syringe SC SCH (08:36)
[2017-09-03] MEDS: Hydrocortisone-Pramoxine 1%-1% Foam(10 gm) TOP SCH ×2 (08:36→17:32)
--- NOTE | 2017-09-03 13:45 | CP.PCM.PN ---
Subjective - Date & Time of Evaluation Date of Evaluation: 09/03/17 Time of Evaluation: 12:30 - Subjective Subjective: NO CHEST PAIN OR SOB FEELS OK A LITTLE DIFFICULT EATING DUE RECENT TOOTH SURGERY Objective - Vital Signs/Intake and Output Vital Signs (last 24 hours): Temp Pulse Resp BP Pulse Ox 97.7 F 97 H 20 127/65 99 09/03/17 08:26 09/03/17 08:26 09/03/17 08:26 09/03/17 08:26 09/03/17 08:26 - Medications Medications: Current Medications Acetaminophen (Tylenol 325mg Tab) 650 mg PO Q4 PRN PRN Reason: Pain, Mild (1-3) Last Admin: 09/03/17 11:27 Dose: 650 mg Aspirin (Ecotrin) 81 mg PO DAILY [facility] Last Admin: 09/03/17 08:36 Dose: 81 mg Atorvastatin Calcium (Lipitor) 10 mg PO HS [facility] Last Admin: 09/02/17 21:09 Dose: 10 mg Enalapril Maleate (Vasotec) 5 mg PO DAILY [facility] Last Admin: 09/03/17 08:36 Dose: 5 mg Enoxaparin Sodium (Lovenox) 40 mg SC DAILY [facility] PRN Reason: Protocol Last Admin: 09/03/17 08:36 Dose: 40 mg Hydrocortisone/Pramoxine (Proctofoam) 1 gm TOP BID [facility] Last Admin: 09/03/17 08:36 Dose: 1 gm Ibuprofen (Motrin Tab) 600 mg PO Q6 PRN PRN Reason: pain 6-10 Last Admin: 09/01/17 06:27 Dose: 600 mg - Labs Labs: 08/31/17 05:45 08/31/17 05:45 - Respiratory Exam Respiratory Exam: Clear to Ausculation Bilateral - Cardiovascular Exam Cardiovascular Exam: REGULAR RHYTHM, +S1, +S2 - Extremities Exam Extremities Exam: Normal Inspection Assessment and Plan - Assessment and Plan (Free Text) Assessment: S/P AVR HYPERTENSION HYPERLIPIDEMIA Plan: CONTINUE ASPIRIN, ENALAPRIL AND ATORVASTATIN
[2017-09-04] MEDS: Enoxaparin 40 mg Syringe SC SCH (09:38)
[2017-09-04] MEDS: Hydrocortisone-Pramoxine 1%-1% Foam(10 gm) TOP SCH ×2 (09:45→16:45)
--- NOTE | 2017-09-05 08:44 | CP.PCM.PN ---
Subjective - Date & Time of Evaluation Date of Evaluation: 09/05/17 Time of Evaluation: 08:43 - Subjective Subjective: pt doing well. pain at surgical site. no fc, n/v/d. cardio notes appriciated, trop andekg reviewed. Objective - Vital Signs/Intake and Output Vital Signs (last 24 hours): Temp Pulse Resp BP Pulse Ox 97.6 F 85 20 116/60 100 09/05/17 08:08 09/05/17 08:08 09/05/17 08:08 09/05/17 08:08 09/05/17 08:08 - Medications Medications: Current Medications Acetaminophen (Tylenol 325mg Tab) 650 mg PO Q4 PRN PRN Reason: Pain, Mild (1-3) Last Admin: 09/04/17 20:22 Dose: 650 mg Aspirin (Ecotrin) 81 mg PO DAILY [facility] Last Admin: 09/04/17 09:38 Dose: 81 mg Atorvastatin Calcium (Lipitor) 10 mg PO HS [facility] Last Admin: 09/04/17 21:53 Dose: 10 mg Enalapril Maleate (Vasotec) 5 mg PO DAILY [facility] Last Admin: 09/04/17 09:38 Dose: 5 mg Enoxaparin Sodium (Lovenox) 40 mg SC DAILY [facility] PRN Reason: Protocol Last Admin: 09/04/17 09:38 Dose: 40 mg Hydrocortisone/Pramoxine (Proctofoam) 1 gm TOP BID [facility] Last Admin: 09/04/17 16:45 Dose: 1 gm Ibuprofen (Motrin Tab) 600 mg PO Q6 PRN PRN Reason: pain 6-10 Last Admin: 09/04/17 16:43 Dose: 600 mg - Labs Labs: 08/31/17 05:45 08/31/17 05:45 - Constitutional Appears: Well, Non-toxic, No Acute Distress - Head Exam Head Exam: ATRAUMATIC, NORMAL INSPECTION, NORMOCEPHALIC - Eye Exam Eye Exam: EOMI, Normal appearance, PERRL Pupil Exam: NORMAL ACCOMODATION, PERRL - ENT Exam ENT Exam: Mucous Membranes Moist, Normal Exam - Neck Exam Neck Exam: Full ROM, Normal Inspection. absent: Lymphadenopathy - Respiratory Exam Respiratory Exam: Clear to Ausculation Bilateral, NORMAL BREATHING PATTERN - Cardiovascular Exam Cardiovascular Exam: REGULAR RHYTHM, RRR, +S1, +S2. absent: Murmur - GI/Abdominal Exam GI & Abdominal Exam: Soft, Normal Bowel Sounds. absent: Tenderness - Extremities Exam Extremities Exam: Full ROM, Normal Capillary Refill, Normal Inspection. absent : Joint Swelling, Pedal Edema - Back Exam Back Exam: NORMAL INSPECTION - Neurological Exam Neurological Exam: Alert, Awake, CN II-XII Intact, Normal Gait, Oriented x3 - Psychiatric Exam Psychiatric exam: Normal Affect, Normal Mood - Skin Skin Exam: Dry, Intact, Normal Color, Warm Assessment and Plan (1) Aortic stenosis, severe Status: Acute (2) DVT prophylaxis Status: Acute (3) HLD (hyperlipidemia) Status: Chronic (4) Hypertension Status: Chronic - Assessment and Plan (Free Text) Assessment: (1) Aortic stenosis, severe Assessment and Plan: s/p TAVR, cardio consult asa, lovenox cardio pt/ot Status: Acute (2) DVT prophylaxis Assessment and Plan: scd nad ae hose lovenox Status: Acute 3- htn/dyslipidemia-cont meds, tnad exercise, bw noted 4-po intol r/t dental surgery, boost/ensure doing well
[2017-09-05] MEDS: Enoxaparin 40 mg Syringe SC SCH (08:56)
[2017-09-05] MEDS: Hydrocortisone-Pramoxine 1%-1% Foam(10 gm) TOP SCH ×2 (08:56→17:14)
--- NOTE | 2017-09-05 09:15 | CP.PCM.PN ---
Subjective - Date & Time of Evaluation Date of Evaluation: 09/05/17 Time of Evaluation: 08:00 - Subjective Subjective: HAD CHEST PAIN AT SURGICAL SITE YESTERDAY-BETTER TODAY Objective - Vital Signs/Intake and Output Vital Signs (last 24 hours): Temp Pulse Resp BP Pulse Ox 97.6 F 85 20 116/60 100 09/05/17 08:08 09/05/17 08:08 09/05/17 08:08 09/05/17 08:08 09/05/17 08:08 - Medications Medications: Current Medications Acetaminophen (Tylenol 325mg Tab) 650 mg PO Q4 PRN PRN Reason: Pain, Mild (1-3) Last Admin: 09/04/17 20:22 Dose: 650 mg Aspirin (Ecotrin) 81 mg PO DAILY [facility] Last Admin: 09/05/17 08:56 Dose: 81 mg Atorvastatin Calcium (Lipitor) 10 mg PO HS [facility] Last Admin: 09/04/17 21:53 Dose: 10 mg Enalapril Maleate (Vasotec) 5 mg PO DAILY [facility] Last Admin: 09/05/17 08:56 Dose: 5 mg Enoxaparin Sodium (Lovenox) 40 mg SC DAILY [facility] PRN Reason: Protocol Last Admin: 09/05/17 08:56 Dose: 40 mg Hydrocortisone/Pramoxine (Proctofoam) 1 gm TOP BID [facility] Last Admin: 09/05/17 08:56 Dose: 1 gm Ibuprofen (Motrin Tab) 600 mg PO Q6 PRN PRN Reason: pain 6-10 Last Admin: 09/04/17 16:43 Dose: 600 mg - Labs Labs: 08/31/17 05:45 08/31/17 05:45 - Respiratory Exam Respiratory Exam: Clear to Ausculation Bilateral - Cardiovascular Exam Cardiovascular Exam: REGULAR RHYTHM, +S1, +S2 - Extremities Exam Extremities Exam: Normal Inspection - Additional Findings Additional findings: EKG 09/04/17 NSR, FIRST DEGREE AV BLOCK TROPONIN 09/04/17 WAS NORMAL Assessment and Plan - Assessment and Plan (Free Text) Assessment: AVR FOR SEVERE HYPERTENSION HYPERLIPIDEMIA Plan: CONTINUE ENALAPRIL, ATORVASTATIN AND ASPIRIN CONTINUE REHAB
--- NOTE | 2017-09-05 16:54 | CARD ---
APPROVED REPORT EKG Measurement Heart [id number] <Conclusion> Sinus rhythm with 1st degree AV block Possible Left atrial enlargement Borderline ECG
[2017-09-06 08:07] VITALS: RESP 20
[2017-09-06] MEDS: Enoxaparin 40 mg Syringe SC SCH (08:13)
[2017-09-06] MEDS: Hydrocortisone-Pramoxine 1%-1% Foam(10 gm) TOP SCH ×2 (08:14→16:39)
[2017-09-07 06:40] LABS: BASO % 0.6 % (0.0-2.0); EOS # 0.5 K/uL (0.0-0.7); EOS % 7.1 % (0.0-4.0); HEMOGLOBIN 9.4 g/dL (12.0-16.0); LYMPH # 1.4 K/uL (1.0-4.3); MEAN CELL VOLUME 90.2 fl (81.0-99.0); MEAN CORPUSCULAR HEMOGLOBIN 29.9 pg (27.0-31.0); MEAN CORPUSCULAR HGB CONC 33.1 g/dL (33.0-37.0); MONO # 0.8 K/uL (0.0-0.8); MONO % 12.3 % (0.0-10.0); RBC 3.13 Mil/uL (3.80-5.20); RED CELL DISTRIBUTION WIDTH 14.4 % (11.5-14.5); WHITE BLOOD COUNT 6.8 K/uL (4.8-10.8)
[2017-09-07 06:47] LABS: PARTIAL THROMBOPLASTIN TIME 26.1 Seconds (25.6-37.1); PROTHROMBIN TIME 11.4 Seconds (9.8-13.1)
[2017-09-07 07:16] LABS: ALB/GLOB RATIO 1.1 (1.0-2.1); ALBUMIN 3.6 g/dL (3.5-5.0); ALT/SGPT 21 U/L (9-52); AST/SGOT 25 U/L (14-36); BLOOD UREA NITROGEN 23 mg/dl (7-17); CALCIUM 9.7 mg/dL (8.4-10.2); GFR AFRICAN-AMERICAN > 60; GFR NON-AFRICAN AMERICAN 54
[2017-09-07] MEDS: Enoxaparin 40 mg Syringe SC SCH (08:30)
[2017-09-07] MEDS: Hydrocortisone-Pramoxine 1%-1% Foam(10 gm) TOP SCH ×2 (08:30→16:33)
--- NOTE | 2017-09-07 09:57 | CP.PCM.PN ---
Subjective - Date & Time of Evaluation Date of Evaluation: 09/07/17 Time of Evaluation: 09:56 - Subjective Subjective: pt doing well. in PT during eval. no f/c, n/v/d. no compalitns. no cp, dyspnea, weakness. for dc tomorrow. bw noted. Objective - Vital Signs/Intake and Output Vital Signs (last 24 hours): Temp Pulse Resp BP Pulse Ox 97.2 F L 94 H 20 118/60 99 09/07/17 07:55 09/07/17 07:55 09/07/17 07:55 09/07/17 07:55 09/07/17 07:55 - Medications Medications: Current Medications Acetaminophen (Tylenol 325mg Tab) 650 mg PO Q4 PRN PRN Reason: Pain, Mild (1-3) Last Admin: 09/06/17 20:24 Dose: 650 mg Aspirin (Ecotrin) 81 mg PO DAILY [facility] Last Admin: 09/07/17 08:30 Dose: 81 mg Atorvastatin Calcium (Lipitor) 10 mg PO HS [facility] Last Admin: 09/06/17 21:08 Dose: 10 mg Enalapril Maleate (Vasotec) 5 mg PO DAILY [facility] Last Admin: 09/07/17 08:31 Dose: 5 mg Enoxaparin Sodium (Lovenox) 40 mg SC DAILY [facility] PRN Reason: Protocol Last Admin: 09/07/17 08:30 Dose: 40 mg Hydrocortisone/Pramoxine (Proctofoam) 1 gm TOP BID [facility] Last Admin: 09/07/17 08:30 Dose: 1 gm Ibuprofen (Motrin Tab) 600 mg PO Q6 PRN PRN Reason: pain 6-10 Last Admin: 09/04/17 16:43 Dose: 600 mg - Labs Labs: 09/07/17 05:50 09/07/17 05:50 PT 11.4 Seconds (9.8-13.1) 09/07/17 05:50 INR 1.0 (0.9-1.2) 09/07/17 05:50 APTT 26.1 Seconds (25.6-37.1) 09/07/17 05:50 - Constitutional Appears: Well, Non-toxic, No Acute Distress - Head Exam Head Exam: ATRAUMATIC, NORMAL INSPECTION, NORMOCEPHALIC - Eye Exam Eye Exam: EOMI, Normal appearance, PERRL Pupil Exam: NORMAL ACCOMODATION, PERRL - ENT Exam ENT Exam: Mucous Membranes Moist, Normal Exam - Neck Exam Neck Exam: Full ROM, Normal Inspection. absent: Lymphadenopathy - Respiratory Exam Respiratory Exam: Clear to Ausculation Bilateral, NORMAL BREATHING PATTERN - Cardiovascular Exam Cardiovascular Exam: REGULAR RHYTHM, RRR, +S1, +S2. absent: Murmur - GI/Abdominal Exam GI & Abdominal Exam: Soft, Normal Bowel Sounds. absent: Tenderness - Exam Exam: Circumcision - Extremities Exam Extremities Exam: Full ROM, Normal Capillary Refill, Normal Inspection. absent : Joint Swelling, Pedal Edema - Back Exam Back Exam: NORMAL INSPECTION - Neurological Exam Neurological Exam: Alert, Awake, CN II-XII Intact, Normal Gait, Oriented x3 - Psychiatric Exam Psychiatric exam: Normal Affect, Normal Mood - Skin Skin Exam: Dry, Intact, Normal Color, Warm Assessment and Plan (1) Aortic stenosis, severe Status: Acute (2) DVT prophylaxis Status: Acute (3) HLD (hyperlipidemia) Status: Chronic (4) Hypertension Status: Chronic - Assessment and Plan (Free Text) Assessment: (1) Aortic stenosis, severe Assessment and Plan: s/p TAVR, cardio consult asa, lovenox cardio pt/ot Status: Acute (2) DVT prophylaxis Assessment and Plan: scd nad ae hose lovenox Status: Acute 3- htn/dyslipidemia-cont meds, tnad exercise, bw noted 4-po intol r/t dental surgery, boost/ensure, improving, no further complaints. for dc tomorrow
--- NOTE | 2017-09-08 07:57 | CP.PCM.DIS ---
Provider - Provider Date of Admission: 08/30/17 20:01 Attending physician: Denia Diaz MD Time Spent in preparation of Discharge (in minutes): 15 Diagnosis - Discharge Diagnosis (1) Aortic stenosis, severe Status: Acute (2) DVT prophylaxis Status: Acute (3) HLD (hyperlipidemia) Status: Chronic (4) Hypertension Status: Chronic Priority: Low Hospital Course - Lab Results Lab Results: Most Recent Lab Values WBC 6.8 K/uL (4.8-10.8) 09/07/17 05:50 RBC 3.13 Mil/uL (3.80-5.20) L 09/07/17 05:50 Hgb 9.4 g/dL (12.0-16.0) L 09/07/17 05:50 Hct 28.2 % (34.0-47.0) L 09/07/17 05:50 MCV 90.2 fl (81.0-99.0) 09/07/17 05:50 MCH 29.9 pg (27.0-31.0) 09/07/17 05:50 MCHC 33.1 g/dL (33.0-37.0) 09/07/17 05:50 RDW 14.4 % (11.5-14.5) 09/07/17 05:50 Plt Count 348 K/uL (130-400) 09/07/17 05:50 MPV 8.0 fl (7.2-11.7) 09/07/17 05:50 Neut % (Auto) 59.0 % (50.0-75.0) 09/07/17 05:50 Lymph % (Auto) 21.0 % (20.0-40.0) 09/07/17 05:50 [place] % (Auto) 12.3 % (0.0-10.0) H 09/07/17 05:50 Eos % (Auto) 7.1 % (0.0-4.0) H 09/07/17 05:50 Baso % (Auto) 0.6 % (0.0-2.0) 09/07/17 05:50 Neut # (Auto) 4.0 K/uL (1.8-7.0) 09/07/17 05:50 Lymph # (Auto) 1.4 K/uL (1.0-4.3) 09/07/17 05:50 [place] # (Auto) 0.8 K/uL (0.0-0.8) 09/07/17 05:50 Eos # (Auto) 0.5 K/uL (0.0-0.7) 09/07/17 05:50 Baso # (Auto) 0.0 K/uL (0.0-0.2) 09/07/17 05:50 PT 11.4 Seconds (9.8-13.1) 09/07/17 05:50 INR 1.0 (0.9-1.2) 09/07/17 05:50 APTT 26.1 Seconds (25.6-37.1) 09/07/17 05:50 Sodium 135 mmol/l (132-148) 09/07/17 05:50 Potassium 4.7 MMOL/L (3.6-5.0) 09/07/17 05:50 Chloride 103 mmol/L (98-107) 09/07/17 05:50 Carbon Dioxide 26 mmol/L (22-30) 09/07/17 05:50 Anion Gap 11 (10-20) 09/07/17 05:50 BUN 23 mg/dl (7-17) H 09/07/17 05:50 Creatinine 1.0 mg/dl (0.7-1.2) 09/07/17 05:50 Est GFR ( Amer) > 60 09/07/17 05:50 Est GFR (Non-Af Amer) 54 09/07/17 05:50 POC Glucose (mg/dL) 107 mg/dL (65-110) 08/31/17 13:24 Random Glucose 92 mg/dL (65-105) 09/07/17 05:50 Calcium 9.7 mg/dL (8.4-10.2) 09/07/17 05:50 Total Bilirubin 0.5 mg/dl (0.2-1.3) 09/07/17 05:50 AST 25 U/L (14-36) 09/07/17 05:50 ALT 21 U/L (9-52) 09/07/17 05:50 Alkaline Phosphatase 74 U/L (38-126) 09/07/17 05:50 Troponin I 0.0340 ng/mL (0.00-0.120) 09/04/17 15:54 Total Protein 7.0 G/DL (6.3-8.2) 09/07/17 05:50 Albumin 3.6 g/dL (3.5-5.0) 09/07/17 05:50 Globulin 3.4 gm/dL (2.2-3.9) 09/07/17 05:50 Albumin/Globulin Ratio 1.1 (1.0-2.1) 09/07/17 05:50 Triglycerides 90 mg/DL (0-149) 08/31/17 05:45 Cholesterol 140 mg/dL (0-199) 08/31/17 05:45 LDL Cholesterol Direct 80 mg/dL (0-129) 08/31/17 05:45 HDL Cholesterol 33 MG/DL (30-70) 08/31/17 05:45 - Hospital Course Hospital Course: pt/ot cardio bw Discharge Exam - Head Exam Head Exam: ATRAUMATIC, NORMAL INSPECTION, NORMOCEPHALIC Discharge Plan - Discharge Medications Prescriptions: Aspirin [Ecotrin] 81 mg PO DAILY #30 tabec Enalapril Maleate [Vasotec] 5 mg PO DAILY #30 tab Simvastatin [Zocor] 20 mg PO DAILY #30 tablet - Follow Up Plan Condition: GOOD Disposition: HOME/ ROUTINE Additional Instructions: final dx-severe s/p TAVR, htn, dyslipidemia cont meds, cont pt/ot. f/u rmg and cardio rted prn, meds per med rec Referrals: Bryan Vieyra MD [Family Provider] -
[2017-09-08] MEDS: Enoxaparin 40 mg Syringe SC SCH (08:21)
[2017-09-08] MEDS: Hydrocortisone-Pramoxine 1%-1% Foam(10 gm) TOP SCH (08:26)
--- NOTE | 2017-09-08 08:55 | CP.PCM.PN ---
Subjective - Date & Time of Evaluation Date of Evaluation: 09/08/17 Time of Evaluation: 08:30 - Subjective Subjective: NO CHEST PAIN OR SOB Objective - Vital Signs/Intake and Output Vital Signs (last 24 hours): Temp Pulse Resp BP Pulse Ox 97.0 F L 101 H 20 122/59 L 93 L 09/07/17 21:19 09/07/17 21:19 09/07/17 21:19 09/07/17 21:19 09/07/17 21:19 - Medications Medications: Current Medications Acetaminophen (Tylenol 325mg Tab) 650 mg PO Q4 PRN PRN Reason: Pain, Mild (1-3) Last Admin: 09/08/17 08:20 Dose: 650 mg Aspirin (Ecotrin) 81 mg PO DAILY [facility] Last Admin: 09/08/17 08:22 Dose: 81 mg Atorvastatin Calcium (Lipitor) 10 mg PO HS [facility] Last Admin: 09/07/17 21:40 Dose: 10 mg Enalapril Maleate (Vasotec) 5 mg PO DAILY [facility] Last Admin: 09/08/17 08:21 Dose: 5 mg Enoxaparin Sodium (Lovenox) 40 mg SC DAILY [facility] PRN Reason: Protocol Last Admin: 09/08/17 08:21 Dose: 40 mg Hydrocortisone/Pramoxine (Proctofoam) 1 gm TOP BID [facility] Last Admin: 09/08/17 08:26 Dose: 1 gm Ibuprofen (Motrin Tab) 600 mg PO Q6 PRN PRN Reason: pain 6-10 Last Admin: 09/04/17 16:43 Dose: 600 mg - Labs Labs: 09/07/17 05:50 09/07/17 05:50 PT 11.4 Seconds (9.8-13.1) 09/07/17 05:50 INR 1.0 (0.9-1.2) 09/07/17 05:50 APTT 26.1 Seconds (25.6-37.1) 09/07/17 05:50 - Respiratory Exam Respiratory Exam: Clear to Ausculation Bilateral - Cardiovascular Exam Cardiovascular Exam: REGULAR RHYTHM, +S1, +S2 - Extremities Exam Extremities Exam: Normal Inspection Assessment and Plan - Assessment and Plan (Free Text) Assessment: S/P AVR HYPERTENSION HYPERLIPIDEMIA Plan: CONTINUE ENALAPRIL, ATORVASTATIN AND ASPIRIN PATIENT TO BE DISCHARGED TO HOME TODAY OFFICE VISIT WITH ME IN TWO WEEKS
[2017-09-08 09:23] VITALS: BP 104/71; PULSE 91; TEMP 97.3; O2SAT 99
== END 2017-09-08 11:10 | disposition home or self-care (01) | DRG 950 ==
LOC: H.TCU 20:01
PROVIDERS: ADMIT Family Medicine; ATTEND Family Medicine
PROC: F07Z9FZ Gait Training/Functional Ambulation Treatment using Assistive, Adaptive, Supportive or Protective Equipment (ICD-10-PCS; principal; 2017-08-30)
PROC: F08Z4FZ Home Management Treatment using Assistive, Adaptive, Supportive or Protective Equipment (ICD-10-PCS; 2017-08-30)
PROC: F07M6FZ Therapeutic Exercise Treatment of Musculoskeletal System - Whole Body using Assistive, Adaptive, Supportive or Protective Equipment (ICD-10-PCS; 2017-08-31)
DX: Z48.812 Encounter for surgical aftercare following surgery on the circulatory system (principal); Z95.2 Presence of prosthetic heart valve; I35.0 Nonrheumatic aortic (valve) stenosis; E78.5 Hyperlipidemia, unspecified; I10 Essential (primary) hypertension; M81.0 Age-related osteoporosis without current pathological fracture; E78.00 Pure hypercholesterolemia, unspecified; M19.90 Unspecified osteoarthritis, unspecified site; Z87.442 Personal history of urinary calculi; Z87.01 Personal history of pneumonia (recurrent)